=== PATIENT | male | born 1945 | race Caucasian/White ===

== ENCOUNTER 2016-09-10 19:31 | Inpatient (IN) | payer OTHER ==
[~2016-09-10] VITALS: Ht 175.3 cm; Wt 78.8 kg
[2016-09-10] MEDS ORDERED: morphine 4 MG/ML VIAL IV STA (19:37)
[2016-09-10] MEDS ORDERED: SOD CHLORIDE 0.9% 1,000 ML IV STA (19:37)
[2016-09-10 20:07] LABS: BASOPHILS % 0.3 % (0.0-2.0); EOSINOPHILS % 0.4 % (0.0-7.0); HEMATOCRIT 27.4 % (42.0-52.0); HEMOGLOBIN 9.7 g/dl (14.0-18.0); LYMPHOCYTES # 1.2 10^3/ul (0.8-2.9); LYMPHOCYTES % 12.2 % (15.0-51.0); MEAN CORPUSCULAR HGB CONC 35.4 g/dl (32.0-37.0); MEAN CORPUSCULAR VOLUME 118.6 fl (82.0-101.0); MEAN PLATELET VOLUME 10.5 fl (7.4-10.4); MONOCYTES % 9.7 % (0.0-11.0); NEUTROPHIL # 7.8 10^3/ul (1.6-7.5); NEUTROPHILS % 76.6 % (39.0-77.0); NUCLEATED RED BLOOD CELLS # 0.1 10^3/ul (0.0-0.0); NUCLEATED RED BLOOD CELLS% 0.6 /100WBC (0.0-0.0); PLATELET COUNT 100 10^3/UL (140-415); POSITIVE DIFF @See below; RED BLOOD COUNT 2.31 10^6/ul (4.70-6.10); RED CELL DISTRIBUTION WIDTH 15.1 % (11.5-14.5); WHITE BLOOD COUNT 10.1 10^3/ul (4.8-10.8)
[2016-09-10 20:23] LABS: PROTIME 31.6 Sec (12.2-14.2); PT RATIO 2.5
[2016-09-10 20:24] LABS: PARTIAL THROMBOPLASTIN TIME 45.2 Sec (25.0-35.0)
[2016-09-10 20:27] LABS: ALBUMIN/GLOBULIN RATIO 0.47; BILIRUBIN,DIRECT 3.8 mg/dl (0.00-0.20); BILIRUBIN,INDIRECT 2.8 mg/dl (0-1.1); BILIRUBIN,TOTAL 6.6 mg/dl (0.2-1.3); CALCIUM 7.3 mg/dl (8.4-10.2); CREATININE 0.95 mg/dl (0.61-1.24); POTASSIUM 3.3 mmol/L (3.5-5.1); TOTAL PROTEIN 6.2 g/dl (6.1-8.1)
[2016-09-10 20:38] LABS: TROPONIN-I 0.014 ng/ml (0.00-0.12)
--- NOTE | 2016-09-10 22:16 | ERA ---
ER Documentation Chief Complaint Date/Time DATE: 09/10/16 TIME: 22:09 Chief Complaint n/v, total body pain, h/o cirrhosis/acittes, jaundice, orthostatic on scene HPI 71-year-old male presents for whole-body pain as well as tense pressure-like pain of his abdomen. According to paramedics the patient felt very lightheaded when he stood up on arrival. He has had intermittently low saturation with the paramedics. Admits to some shortness of breath. He denies any chest pain specifically. Denies any vomiting. ROS All systems reviewed and are negative except as per history of present illness. Allergies Allergies: Coded Allergies: Penicillins (Verified Allergy, Unknown, 09/10/16) aspirin (Verified Allergy, Unknown, 09/10/16) PMhx/Soc History of Surgery: No Anesthesia Reaction: No Hx Neurological Disorder: No Hx Cardiac Disorders: Yes (HTN) Hx Psychiatric Problems: No Hx Miscellaneous Medical Probl: Yes (LIVER CIRRHOSIS) Hx Alcohol Use: Yes (CHARDONNAY) Hx Substance Use: No Hx Tobacco Use: No Smoking Status: Never smoker Physical Exam Vitals Vital Signs Date Time Temp Pulse Resp B/P Pulse Ox O2 Delivery O2 Flow Rate FiO2 09/10/16 21:31 97.6 94 22 101/75 Non Rebreather 09/10/16 20:52 91 23 119/97 100 Non Rebreather 09/10/16 20:20 98.0 94 23 111/63 100 Non Rebreather 09/10/16 20:05 98 23 96/60 83 Non Rebreather 09/10/16 19:55 Non Rebreather 09/10/16 19:55 98.0 100 23 102/59 Non Rebreather 09/10/16 19:38 97.2 108 22 102/59 83 Physical Exam Const: [] Moderate distress, appears short of breath and uncomfortable Head: Atraumatic Eyes: Normal Conjunctiva, EOMI, TONJA ENT: Normal External Ears, Nose and Mouth. Neck: Full range of motion..~ No meningismus. Resp: Markedly decreased bibasilar breath sounds Cardio: Regular rate and rhythm, no murmurs Abd: Soft, tensely distended, very mild diffuse tenderness to palpation,. No guarding or rebound. Skin: No petechiae or rashes, some jaundice Back: No midline or flank tenderness Ext: No cyanosis, mild bilateral pedal edema Neur: Awake and alert and oriented 3, no focal deficit Psych: Normal Mood and Affect Result Diagram: 09/10/16194409/10/161944 Results 24 hrs Laboratory Tests Test 09/10/16 19:45 White Blood Count 10.110^3/ul Red Blood Count 2.3110^6/ul Hemoglobin 9.7g/dl Hematocrit 27.4% Mean Corpuscular Volume 118.6fl Mean Corpuscular Hemoglobin 42.0pg Mean Corpuscular Hemoglobin Concent 35.4g/dl Red Cell Distribution Width 15.1% Platelet Count 94700^3/UL Mean Platelet Volume 10.5fl Neutrophils % 76.6% Lymphocytes % 12.2% Monocytes % 9.7% Eosinophils % 0.4% Basophils % 0.3% Nucleated Red Blood Cells % 0.6/100WBC Neutrophils # 7.810^3/ul Lymphocytes # 1.210^3/ul Monocytes # 1.010^3/ul Eosinophils # 0.010^3/ul Basophils # 0.010^3/ul Nucleated Red Blood Cells # 0.110^3/ul Prothrombin Time 31.6Sec Prothrombin Time Ratio 2.5 INR International Normalized Ratio 3.00 Activated Partial Thromboplast Time 45.2Sec Sodium Level 130mmol/L Potassium Level 3.3mmol/L Chloride Level 89mmol/L Carbon Dioxide Level 26mmol/L Anion Gap 18 Blood Urea Nitrogen 25mg/dl Creatinine 0.95mg/dl Glucose Level 137mg/dl Calcium Level 7.3mg/dl Total Bilirubin 6.6mg/dl Direct Bilirubin 3.80mg/dl Indirect Bilirubin 2.8mg/dl Aspartate Amino Transf (AST/SGOT) 136IU/L Alanine Aminotransferase (ALT/SGPT) 111IU/L Alkaline Phosphatase 71IU/L Troponin I 0.014ng/ml B-Type Natriuretic Peptide 1010PG/ML Total Protein 6.2g/dl Albumin 2.0g/dl Globulin 4.20g/dl Albumin/Globulin Ratio 0.47 Lipase 90U/L Current Medications Medications (Trade) Dose Ordered Sig/Demarco Route PRN Reason Start Time Stop Time Status Last Admin Dose Admin Sodium Chloride (NS) 1,000 ml @ 1,000 mls/hr Q1H STAT IV 09/10/16 19:37 09/10/16 20:36 DC 09/10/16 20:00 Morphine Sulfate (morphine) 4 mg ONCE STAT IV 09/10/16 19:37 09/10/16 19:40 DC 09/10/16 20:01 Procedures/MDM Respiratory distress and desaturation. Anticipate that patient shortness of breath is secondary to ascitic fluid in his abdomen pushing on his diaphragms and not allowing for full inspiration. No signs of acute infection. Patient did need a nonrebreather mask saturating well. Given a liter of fluid as he was tachycardic. He does have laboratories including mild pancytopenia and hyponatremia consistent with liver disease. Going to admit the patient after stabilization however is a [facility] patient. I did speak with the [facility] physician who does accept transfer. A CAT scan of the abdomen and pelvis is still pending. I see no signs of pulmonary edema the chest X ray. The incoming ER physician is aware and is going to follow-up a CAT scan. [facility] doctors also get a call back for the results. EKG interpretation: Sinus tachycardia rate of 103, low voltage, indeterminate axis, no ST or T-wave changes concerning for acute ischemia. SC intervals 204. monitoring specialist interpretation: Mild sinus tachycardia with no other arrhythmia Chest x-ray interpretation: I see no acute process, I see no pleural effusions, no pulmonary edema, no infiltrates, no fractures CT abdomen pelvis interpretation: I do see moderate ascites as well as cirrhotic liver, I do not see any colonic obstruction or free air. No fractures. Radiology read pending. Total CARE time 36 minutes: This includes treatment of unstable vital signs, hypoxia, tachypnea and tachycardia, careful fluid administration, consideration of noninvasive positive pressure ventilation, consideration of ET intubation, multiple visits patient's bedside to reassess cardiorespiratory status, discussion with [facility] doctor, discussion with oncoming physician, discussion with patient. This does not include any billable procedures Departure Diagnosis: Primary Impression: Hypoxia Additional Impressions: Respiratory distress Liver failure Ascites of liver Hyponatremia Condition: Serious ANGEL WRAY DO Sep 10, 2016 22:16
--- NOTE | 2016-09-10 22:22 | RADRPT ---
PROCEDURE: XR Chest. CLINICAL INDICATION: Chest pain. TECHNIQUE: Portable AP view of the chest was obtained. COMPARISON: None. FINDINGS: The cardiomediastinal silhouette is mildly enlarged. Left greater than right lower lobe and lingula r infiltrates are of concern. The costophrenic angles are blunted unable to exclude small pleural e ffusions. There is no evidence of pneumothorax. Old healed right sixth and seventh rib fractures a re present. There is no evidence of acute osseous abnormality. RPTAT:HJJR IMPRESSION: Cardiac silhouette enlargement, likely small bilateral pleural effusions and some basilar infiltrate /edema unable to exclude congestive heart failure in the proper clinical setting. Physician Jin Date Time Electronically viewed and signed by Ricky Delgado Physician on 09/10/2016 22:21 /
--- NOTE | 2016-09-10 22:28 | RADRPT ---
PROCEDURE: CT abdomen and pelvis without contrast. CLINICAL INDICATION: Jaundice, vomiting, abdominal pain TECHNIQUE: CT scan of the abdomen and pelvis without contrast was performed. Sagittal and coronal reformatted images were obtained from the axial source images. CTDI = 21.65 mGy; DLP = 1217.71 mGy- cm COMPARISON: None available. FINDINGS: Visualized lower thorax: Ground-glass opacities of the right middle lobe, lingula and right greater than left lower lobe are present. There is compressive atelectasis of the posterior lower lobe. T he right hemidiaphragm is elevated. The visualized heart is mildly enlarged with extensive coronary artery calcification. Small to moderate bilateral dependent pleural effusions are present. Liver, gallbladder, pancreas and spleen: Diffuse low attenuation of the liver is compatible with he patic steatosis with normal liver size. There is a slightly nodular contour to the liver unable to exclude cirrhosis. There is no evidence for a liver mass or ductal dilatation. Some hyperdense mat erial in the gallbladder lumen likely sludge without changes to suggest cholecystitis. No common bi le duct abnormality is demonstrated. The pancreas is unremarkable. The spleen is normal in size. Adrenal glands and genitourinary system: The adrenal glands are normal bilaterally. The kidneys are normal and size, contour and attenuation with no evidence for masses, calculi or hydronephrosis. T he ureters are unremarkable. Urinary bladder wall thickening is possibly related to a partially cont racted appearance. The prostate gland is normal in size. The scrotum is not included in the field of view. Gastrointestinal system: Small to moderate sliding hiatal hernia is present, the remainder of the s tomach is decompressed and unremarkable. The small bowel is normal in caliber with no ileus, obstru ction or wall thickening. The appendix and surrounding fat are within the limits of normal. The co carmella shows no evidence for wall thickening or acute abnormality. There is no evidence for colitis or diverticulitis. Peritoneum, retroperitoneum, lymph nodes and vessels: The abdominal aorta is normal in caliber. The re is moderate to severe aortic and iliac system atherosclerotic calcification. The inferior vena c jennifer is unremarkable. There is no evidence for adenopathy or mass. Moderate amount of pelvic and ab dominal ascites is present. There is some nonspecific edematous change within the small bowel mesen nato. There is no evidence of pneumoperitoneum. Varices are present in the left upper quadrant. Osseous structures and musculoskeletal findings: Left hip hemiarthroplasty changes are present. De mineralization cannot exclude osteoporosis. Mild chronic-appearing superior L2, L3 and L4 compressi on deformities are seen. Diffuse subcutaneous edema is consistent with anasarca. RPTAT:HJJR IMPRESSION: 1. Cardiomegaly with extensive coronary artery calcification, ground-glass infiltrate/edema in the v isualized lung parenchyma and bilateral pleural effusions as well as anasarca are concerning for car diac decompensation, congestive heart failure. 2. Hepatic steatosis with slight nodular contour to the liver unable to exclude cirrhosis. 3. Likely gallbladder sludge without cholecystitis. 4. Contracted but otherwise unremarkable urinary bladder. 5. Moderate ascites. 6. Chronic compression fracture deformities at L2, L3 and L4 with left hip hemiarthroplasty changes . 7. Atherosclerotic calcification of the aorta and iliac systems. 8. Hiatal hernia. Physician Jin Date Time Electronically viewed and signed by Physician Jin on 09/10/2016 22:28 JR/
[2016-09-11] VITALS (32 sets, daily range): BP systolic 86–120; BP diastolic 39–71; PULSE 95–112; RESP 17–27; TEMP 97.5; Ht 175.3 cm; Wt 78.8 kg
[2016-09-11] MEDS ORDERED: SOD CHLORIDE 0.9% 250 ML IV ONE (01:00)
[2016-09-11] MEDS ORDERED: PHYTONADIONE 10 MG/ML INJ SC ONE (04:00)
[2016-09-11] MEDS ORDERED: NITROGLYCERIN (SL) 0.4 MG TAB SL PRN (04:00)
[2016-09-11] MEDS ORDERED: morphine 2 MG INJ IV PRN (04:00)
[2016-09-11] MEDS ORDERED: LORAZEPAM 2 MG INJ IV PRN (04:00)
[2016-09-11] MEDS ORDERED: ONDANSETRON 4 MG INJ IV PRN (04:00)
[2016-09-11] MEDS ORDERED: ACETAMINOPHEN 650MG/20.3ML CUP PO PRN (04:00)
[2016-09-11 04:52] LABS: ABNORMAL IP MESSAGE 1; BASOPHILS % 0.2 % (0.0-2.0); EOSINOPHILS % 0.4 % (0.0-7.0); HEMATOCRIT 25.9 % (42.0-52.0); HEMOGLOBIN 9.2 g/dl (14.0-18.0); LYMPHOCYTES % 9.1 % (15.0-51.0); MEAN CORPUSCULAR HEMOGLOBIN 40.9 pg (29.0-33.0); MEAN CORPUSCULAR HGB CONC 35.5 g/dl (32.0-37.0); MEAN CORPUSCULAR VOLUME 115.1 fl (82.0-101.0); MEAN PLATELET VOLUME 10.4 fl (7.4-10.4); MONOCYTE # 0.9 10^3/ul (0.3-0.9); MONOCYTES % 7.7 % (0.0-11.0); NEUTROPHIL # 9.3 10^3/ul (1.6-7.5); NEUTROPHILS % 81.9 % (39.0-77.0); NUCLEATED RED BLOOD CELLS% 0.3 /100WBC (0.0-0.0); PLATELET COUNT 94 10^3/UL (140-415); POSITIVE DIFF @See below; RED BLOOD COUNT 2.25 10^6/ul (4.70-6.10); WHITE BLOOD COUNT 11.4 10^3/ul (4.8-10.8)
[2016-09-11] MEDS: ALBUTEROL/IPRATROPIUM (NEB) 3 ML AMP NEB SCH ×5 (05:00→21:20)
[2016-09-11 05:15] LABS: ALBUMIN 1.8 g/dl (3.3-4.9); ALBUMIN/GLOBULIN RATIO 0.45; BILIRUBIN,DIRECT 3.1 mg/dl (0.00-0.20); BILIRUBIN,INDIRECT 2.3 mg/dl (0-1.1); BILIRUBIN,TOTAL 5.4 mg/dl (0.2-1.3); CALCIUM 7.2 mg/dl (8.4-10.2); CREATININE 0.89 mg/dl (0.61-1.24); MAGNESIUM 1.3 mg/dl (1.7-2.5); POTASSIUM 3.5 mmol/L (3.5-5.1); TOTAL PROTEIN 5.8 g/dl (6.1-8.1)
[2016-09-11 05:25] LABS: TROPONIN-I 0.016 ng/ml (0.00-0.12)
[2016-09-11 05:29] LABS: CK-MB 3.81 ng/ml (0.0-2.4)
[2016-09-11] MEDS: FUROSEMIDE 40 MG INJ IV SCH (05:41)
[2016-09-11 05:43] LABS: THYROID STIMULATING HORMONE 12.2 MIU/L (0.465-4.680)
[2016-09-11 07:12] LABS: CHOLESTEROL < 50 mg/dl (100-200); HDL CHOLESTEROL < 5 mg/dl (31-75)
[2016-09-11 07:13] LABS: TRIGLYCERIDES 96 mg/dl (0-149)
[2016-09-11 07:14] LABS: AADO2 Arterial 618.3 mmHg (7.0-24.0); Allen Test ACCEPTAB; Arterial Base Excess -2.4 mmol/L (-3.0-3); Arterial COHb 0.7 % (0.0-3.0); Arterial Fraction of Oxyhgb 90.2 % (93.0-99.0); Arterial HCO3 20.7 mmol/L (22.0-26.0); Arterial MetHb 0.4 % (0.0-1.5); Arterial Total Hemglobin 11.4 g/dl (12.0-18.0); MODE MASK - NRB
--- NOTE | 2016-09-11 07:44 | RADRPT ---
PROCEDURE: CHEST - 1 VIEW CLINICAL INDICATION: 71-year-old male with hypoxia and shortness of breath. TECHNIQUE: A single frontal AP semi-erect view of the chest was performed. The images were review ed on a PACS workstation. COMPARISON: Chest x-ray September 10, 2016 FINDINGS: There is a shallow inspiration accentuating the heart size. Accounting for this, the cardiomediasti nal silhouette is mildly enlarged but without significant interval change. The thoracic aortic arch is calcified. There is mild bibasilar subsegmental atelectasis. There is small left pleural effus ion. There is ground-glass appearance suggestive of mild pulmonary vascular congestion. There is no evidence for pneumothorax. The osseous structures are intact. IMPRESSION: 1. Mild cardiomegaly. 2. Calcified thoracic aortic arch. 3. Mild pulmonary vascular congestion 4. Shallow inspiration. 5. Mild bibasilar subsegmental atelectasis. 6. Small left pleural effusion. .Marcos Wheatley MD, MD Date Time Electronically viewed and signed by .Marcos Wheatley MD, on 09/11/2016 07:43 .M/
[2016-09-11 07:55] LABS: ADD UMIC YES; UR BILIRUBIN (Dip) 3+ (NEGATIVE); UR BLOOD (Dip) 1+ (NEGATIVE); UR COLOR AMBER (YELLOW); UR KETONES (Dip) 1+ (NEGATIVE); UR LEUKOCYTE ESTERASE (Dip) NEGATIVE (NEGATIVE); UR NITRITE (Dip) POSITIVE (NEGATIVE); UR TOTAL PROTEIN (Dip) 1+ (NEGATIVE); UR UROBILINOGEN (Dip) >8.0 E.U./dL (0.1-1.0)
[2016-09-11] MEDS ORDERED: ALBUMIN HUMAN 25% 50 ML IV ONE (08:00)
[2016-09-11 08:08] LABS: ICTOTEST POSITIVE (NEGATIVE); URINE RBCS 0-2 /HPF (0)
[2016-09-11 08:09] LABS: TROPONIN-I 0.017 ng/ml (0.00-0.12)
[2016-09-11 08:09] LABS: UR BACTERIA FEW /HPF (NONE SEEN); UR CLARITY HAZY (CLEAR); UR MUCUS FEW /HPF (NONE SEEN)
[2016-09-11 08:20] LABS: CK-MB 3.65 ng/ml (0.0-2.4)
[2016-09-11] MEDS ORDERED: VANCOMYCIN 1 GM (PMX) 250 ML IVPB ONE (08:30)
[2016-09-11] MEDS: LEVOFLOXACIN 500MG/D5W (PMX) 100 ML IVPB SCH (08:50)
[2016-09-11] MEDS ORDERED: HEPARIN 5,000 UNIT/0.5 ML VIAL SC SCH (09:00)
--- NOTE | 2016-09-11 09:57 | HP ---
Date/Time of Note Date/Time of Note DATE: 09/11/16 TIME: 09:42 Assessment/Plan Assessment/Plan Assessment/Plan IMPRESSION 1. Acute respiratory failure, secondary to volume overload state 2. Decompensated liver cirrhosis with ascites 3. CHF 4. Elevated transaminases and hyperbilirubinemia: Secondary to end-stage liver disease 5. Coagulopathy, manifestation of liver disease 6. Macrocytic anemia: Caused by liver disease 7. Electrolyte abnormalities PLAN -Continue positive pressure ventilation. Breathing treatments. Will diurese with IV Lasix. -I have ordered ultrasound-guided paracentesis. -We will obtain a 2D echo -Pulmonary, cardiology and GI consult will be placed -Anemia is a manifestation of his liver disease but given patient is at increased risk for GI bleed, will order FOBT and also will check for iron deficiency. -Correct electrolytes as needed HPI/ROS Admit Date/Time Admit Date/Time Hx of Present Illness This is a 71-year-old male with a history of hypertension, liver cirrhosis and CHF who presented to the emergency department complaining of abdominal pain/ distention, nausea vomiting and shortness of breath. Patient's currently on BiPAP and as such information is gathered from a chart review and from the ER physician. When he presented to the ER his oxygen saturation was 83% and he was initially put on nonrebreather mask and then switched to BiPAP. His abdomen is distended and patient is jaundiced he had a sodium of 130 total bilirubin is elevated at 6.6, AST and ALT are in the 100s. CT abdomen pelvis shows cardiomegaly with extensive coronary artery calcifications, infiltrate in the lung parenchymal, pulmonary edema, anasarca concerning for cardiac decompensation, CHF. No reported chest pain. PMH/Family/Social Social History Smoking Status: Never smoker Exam/Review of Systems Vital Signs Vitals Vital Signs Date Time Temp Pulse Resp B/P Pulse Ox O2 Delivery O2 Flow Rate FiO2 09/11/16 09:32 109 28 98/59 95 BIPAP 09/11/16 09:25 50 09/11/16 07:08 12 09/11/16 06:44 97.5 Intake and Output 09/10/16 09/10/16 09/11/16 15:00 23:00 07:00 Intake Total 1250 ml Balance 1250 ml Exam Constitutional: other (On BiPAP. No acute distress) Respiratory: diminished breath sounds Cardiovascular: other (Tachycardic with regular rhythm) Gastrointestinal: distended, tender Labs Result Diagram: 09/11/1644409/11/16444 Medications Medications Current Medications Ondansetron HCl (Zofran Inj) 4 mg Q6H PRN IV NAUSEA AND/OR VOMITING; Start at 04:00 Nitroglycerin (Nitroglycerin (Sl Tab) 0.4 Mg) 1 tab Q5M PRN SL CHEST PAIN; Start 09/11/16 at 04:00 Acetaminophen (Tylenol Liquid) 650 mg Q6H PRN PO PAIN LEVEL 1-3 OR FEVER; Start 09/11/16 at 04:00 Morphine Sulfate (morphine) 2 mg Q4H PRN IV PAIN LEVEL 7-10; Start 09/11/16 at 04:00 Lorazepam (Ativan) 0.5 mg Q2H PRN IV ANXIETY; Start 09/11/16 at 04:00 Famotidine (Pepcid Iv) 20 mg Q12 IV ; Start 09/11/16 at 09:00 Heparin Sodium (Porcine) (Heparin (5000 Units/0.5 ml)) 5,000 unit Q12 SC ; Start 09/11/16 at 09:00 Furosemide 40 mg 40 mg DAILY@06 IV Last administered on 09/11/16 05:41; Admin Dose 40 MG; Start 09/11/16 at 06:00 Levofloxacin/ Dextrose 100 ml @ 100 mls/hr DAILY IVPB Last administered on 08:50; Admin Dose 100 MLS/HR; Start 09/11/16 at 09:00 Vancomycin HCl (Vancocin) 250 ml @ 125 mls/hr ONCE ONCE IVPB ; Start 09/11/16 at 08:30; Stop 09/11/16 at 10:29 JAIRO RICH MD Sep 11, 2016 09:54
--- NOTE | 2016-09-11 11:41 | CONS ---
Date/Time of Note Date/Time of Note DATE: 09/11/16 TIME: 11:36 Assessment/Plan Assessment/Plan Additional Assessment/Plan Chest x-ray was reviewed from today which is showing minimal left lower lobe atelectasis. Next Assessment recommendations; 1. Patient admitted with shortness of breath likely from large ascites compromising respiratory status. 2. History of advanced cirrhosis of liver. 3. Anemia and thrombocytopenia. Continue current treatment. Patient scheduled for ultrasound of the abdomen. If there is any significant ascites fluid he would benefit from therapeutic paracentesis. Consultation Date/Type/Reason Admit Date/Time Date of Consultation: Sep 11, 2016 Type of Consultation: Pulmonary/critical care Reason for Consultation Pulmonary consultation requested for evaluation of shortness of breath. History of presenting any; patient is a 70-year-old male who was brought into the emergency room with complaints of shortness of breath. Upon evaluation patient was discovered to have severe liver disease with possibly significant ascites compromising his breathing. By the time I saw the patient I saw the patient is awake on supplemental oxygen and was able to answer questions briefly. She has been obtained from medical records. Past medical history; 1. Patient with history of cirrhosis. 2. Apparently chronic thrombocytopenia. 3. No prior history of any ascites or paracentesis. This was confirmed with the patient's friend who has a DPOA. Medications; reviewed. Allergies; penicillin and aspirin. Family history; patient is single. He does not have any children. Occupational history; not available. Review of systems; a very limited review of systems could be obtained. Patient does complain of mild shortness of breath. But denies any abdominal pain, vomiting. General exam; elderly male, currently in no distress. Awake. Social History Smoking Status: Never smoker Exam/Review of Systems Vital Signs Vitals Vital Signs Date Time Temp Pulse Resp B/P Pulse Ox O2 Delivery O2 Flow Rate FiO2 09/11/16 10:10 107 95 50 09/11/16 09:32 28 98/59 BIPAP 09/11/16 07:08 12 09/11/16 06:44 97.5 Intake and Output 09/10/16 09/10/16 09/11/16 15:00 23:00 07:00 Intake Total 1250 ml Balance 1250 ml Exam HEENT exam; supple neck, no JVD. No lymphadenopathy. Midline trachea. No thyromegaly. Patient multiple carious teeth. Has bilateral intraocular lens implants. Patient is anicteric. Chest exam; diminished but clear breath sound bilaterally. No added sound. S1- S2 audible, no murmurs. Regular rhythm. Abdomen exam; protuberant. Bowel sounds are sluggish. Umbilicus is flat. There is a positive fluid thrill. There is no scrotal edema. Extremity exam; no peripheral edema. Patient does have ecchymosis involving left lower extremity. 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 And follows simple commands. Results Result Diagram: 09/11/16 0445 09/11/16 0445 Results 24 hrs Laboratory Tests Test 09/10/16 19:45 09/11/16 04:45 09/11/16 06:37 09/11/16 06:39 White Blood Count 10.1 11.4 H Red Blood Count 2.31 L 2.25 L Hemoglobin 9.7 L 9.2 L Hematocrit 27.4 L 25.9 L Mean Corpuscular Volume 118.6 H 115.1 H Mean Corpuscular Hemoglobin 42.0 H 40.9 H Mean Corpuscular Hemoglobin Concent 35.4 35.5 Red Cell Distribution Width 15.1 H 15.0 H Platelet Count 100 L 94 L Mean Platelet Volume 10.5 H 10.4 Neutrophils % 76.6 81.9 H Lymphocytes % 12.2 L 9.1 L Monocytes % 9.7 7.7 Eosinophils % 0.4 0.4 Basophils % 0.3 0.2 Nucleated Red Blood Cells % 0.6 H 0.3 H Neutrophils # 7.8 H 9.3 H Lymphocytes # 1.2 1.0 Monocytes # 1.0 H 0.9 Eosinophils # 0.0 0.0 Basophils # 0.0 0.0 Nucleated Red Blood Cells # 0.1 H 0.0 Prothrombin Time 31.6 H Prothrombin Time Ratio 2.5 INR International Normalized Ratio 3.00 Activated Partial Thromboplast Time 45.2 H Sodium Level 130 L 131 L Potassium Level 3.3 L 3.5 Chloride Level 89 L 92 L Carbon Dioxide Level 26 26 Anion Gap 18 H 17 H Blood Urea Nitrogen 25 H 26 H Creatinine 0.95 0.89 Glucose Level 137 122 Calcium Level 7.3 L 7.2 L Total Bilirubin 6.6 H 5.4 H Direct Bilirubin 3.80 H 3.10 H Indirect Bilirubin 2.8 H 2.3 H Aspartate Amino Transf (AST/SGOT) 136 H 127 H Alanine Aminotransferase (ALT/SGPT) 111 H 109 H Alkaline Phosphatase 71 62 Troponin I 0.014 0.016 0.017 B-Type Natriuretic Peptide 1010 H Total Protein 6.2 5.8 L Albumin 2.0 L 1.8 L Globulin 4.20 H 4.00 H Albumin/Globulin Ratio 0.47 0.45 Lipase 90 Hemoglobin A1c Magnesium Level 1.3 L Creatine Kinase 63 58 Creatine Kinase Index 6.0 6.3 Creatinine Kinase MB (Mass) 3.81 H 3.65 H Triglycerides Level 96 Cholesterol Level < 50 L LDL Cholesterol, Calculated HDL Cholesterol < 5 L Cholesterol/HDL Ratio Thyroid Stimulating Hormone (TSH) 12.200 H Ammonia 29 Blood Gas Specimen Source Blood arterial Arterial Blood Date Drawn 09/11/2016 7:00:50 AM Arterial Blood pH (Temp corrected) 7.449 Arterial Blood pCO2 (Temp correct) 30.6 L Arterial Blood pO2 (Temp corrected) 64.1 L Arterial Blood HCO3 20.7 L Arterial Blood Base Excess -2.4 Arterial Blood Oxygen Saturation 91.2 L [place] Test ACCEPTAB Arterial Blood Gas Puncture Site Left Radial Arterial Blood Carboxyhemoglobin 0.7 Arterial Blood Methemoglobin 0.4 Blood Gas A-a O2 Differential 618.3 H Oxyhemoglobin Percent 90.2 L Total Hemoglobin 11.4 L Blood Gas Temperature 37.0 Blood Gas Modality MASK - NRB FiO2 100.0 Blood Gas Notified Whom AT Blood Gas Notified Time 09/11/2016 7:14:28 AM Test 09/11/16 06:40 09/11/16 07:30 09/11/16 09:32 Lactic Acid Level 4.3 *H 6.0 *H Urine Color YAJAIRA Urine Clarity HAZY Urine pH 6.5 Urine Specific [place] 1.020 Urine Ketones 1+ Urine Nitrite POSITIVE H Urine Bilirubin 3+ H Urine Ictotest POSITIVE Urine Urobilinogen >8.0 E.U./dL H Urine Leukocyte Esterase NEGATIVE Urine Microscopic RBC 0-2 Urine Bacteria FEW Urine Mucus FEW Urine Hemoglobin 1+ H Urine Glucose 0.1% H Urine Total Protein 1+ H Medications Medications Current Medications Ondansetron HCl (Zofran Inj) 4 mg Q6H PRN IV NAUSEA AND/OR VOMITING; Start at 04:00 Nitroglycerin (Nitroglycerin (Sl Tab) 0.4 Mg) 1 tab Q5M PRN SL CHEST PAIN; Start 09/11/16 at 04:00 Acetaminophen (Tylenol Liquid) 650 mg Q6H PRN PO PAIN LEVEL 1-3 OR FEVER; Start 09/11/16 at 04:00 Morphine Sulfate (morphine) 2 mg Q4H PRN IV PAIN LEVEL 7-10; Start 09/11/16 at 04:00 Lorazepam (Ativan) 0.5 mg Q2H PRN IV ANXIETY; Start 09/11/16 at 04:00 Famotidine (Pepcid Iv) 20 mg Q12 IV ; Start 09/11/16 at 09:00 Heparin Sodium (Porcine) (Heparin (5000 Units/0.5 ml)) 5,000 unit Q12 SC ; Start 09/11/16 at 09:00 Furosemide 40 mg 40 mg DAILY@06 IV Last administered on 09/11/16 05:41; Admin Dose 40 MG; Start 09/11/16 at 06:00 Levofloxacin/ Dextrose 100 ml @ 100 mls/hr DAILY IVPB Last administered on 08:50; Admin Dose 100 MLS/HR; Start 09/11/16 at 09:00 Magnesium Sulfate/ Sodium Chloride (Magnesium Sulfate/NS) 106 ml @ 35.333 mls/ hr ONCE ONCE IVPB ; Start 09/11/16 at 12:00; Stop 09/11/16 at 14:59 SARA VIDAL Sep 11, 2016 11:41
[2016-09-11] MEDS ORDERED: MAGNESIUM SULFATE 3 GM in SOD CHLORIDE 0.9% 100 ML IVPB ONE (12:00)
[2016-09-11] MEDS: FAMOTIDINE 20 MG INJ IV SCH ×2 (12:03→21:53)
[2016-09-11 12:43] LABS: INR 2.77; PROTIME 29.6 Sec (12.2-14.2); PT RATIO 2.3
--- NOTE | 2016-09-11 13:18 | CONS ---
Date/Time of Note Date/Time of Note DATE: 09/11/16 TIME: 13:02 Assessment/Plan Assessment/Plan Additional Assessment/Plan Assessment * Acute respiratory failure managed by pulmonary * Abdominal distension Ascites Liver cirrhosis * Elevated transaminases * Congestive heart failure Plan * continue present management * trend transaminase levels * correct INR * paracentesis by interventional radiologist * further orders will depend on clinical course Consultation Date/Type/Reason Admit Date/Time Date of Consultation: Sep 11, 2016 Type of Consultation: Gastroenterology Reason for Consultation elevated transaminase Referring Provider: RORY DIAZ Hx of Present Illness 71 year old with past medical history liver cirrhosis,hypertension,and congestive heart failure was brought to emergency room complaining of shortness of breath ,abdominal distension..Patient is lethargic on Bipap and history is obtained with medical records and nurse.CBC revealed WBC 10.1,hemoglobin 9.7, hematorit 27.4 platelet 100,PT 29.6 INR2.77,Na130 K 3.3,Totl bilirubin 6.6 AST 136,ALT [address] scan abdomen 1. Cardiomegaly with extensive coronary artery calcification, ground-glass infiltrate/edema in the visualized lung parenchyma and bilateral pleural effusions as well as anasarca are concerning for cardiac decompensation, congestive heart failure. 2. Hepatic steatosis with slight nodular contour to the liver unable to exclude cirrhosis. 3. Likely gallbladder sludge without cholecystitis. 4. Contracted but otherwise unremarkable urinary bladder. 5. Moderate ascites. 6. Chronic compression fracture deformities at L2, L3 and L4 with left hip hemiarthroplasty changes. 7. Atherosclerotic calcification of the aorta and iliac systems. 8. Hiatal hernia. Past Medical History Medical History: congestive heart failure, hypertension, other (cirrhosis) Family History Significant Family History: no pertinent family hx Social History Smoking Status: Never smoker Exam/Review of Systems Vital Signs Vitals Vital Signs Date Time Temp Pulse Resp B/P Pulse Ox O2 Delivery O2 Flow Rate FiO2 09/11/16 12:35 106 96 50 09/11/16 09:32 28 98/59 BIPAP 09/11/16 07:08 12 09/11/16 06:44 97.5 Intake and Output 09/10/16 09/10/16 09/11/16 15:00 23:00 07:00 Intake Total 1250 ml Balance 1250 ml Exam Constitutional: frail Head: normocephalic Eyes: nl conjunctiva ENMT: mucosa pink and moist, other (on bipap) Neck: non-tender, supple Respiratory: diminished breath sounds, intercostal retraction, other (bipap) Gastrointestinal: bowel sounds, distended, non-tender, soft Musculoskeletal: muscle weakness, swelling Extremities: edema Neurological: lethargic Lymph: nl lymph nodes Results Result Diagram: 09/11/16 0445 09/11/16 0445 Results 24 hrs Laboratory Tests Test 09/10/16 19:45 09/11/16 04:45 09/11/16 06:37 09/11/16 06:39 White Blood Count 10.1 11.4 H Red Blood Count 2.31 L 2.25 L Hemoglobin 9.7 L 9.2 L Hematocrit 27.4 L 25.9 L Mean Corpuscular Volume 118.6 H 115.1 H Mean Corpuscular Hemoglobin 42.0 H 40.9 H Mean Corpuscular Hemoglobin Concent 35.4 35.5 Red Cell Distribution Width 15.1 H 15.0 H Platelet Count 100 L 94 L Mean Platelet Volume 10.5 H 10.4 Neutrophils % 76.6 81.9 H Lymphocytes % 12.2 L 9.1 L Monocytes % 9.7 7.7 Eosinophils % 0.4 0.4 Basophils % 0.3 0.2 Nucleated Red Blood Cells % 0.6 H 0.3 H Neutrophils # 7.8 H 9.3 H Lymphocytes # 1.2 1.0 Monocytes # 1.0 H 0.9 Eosinophils # 0.0 0.0 Basophils # 0.0 0.0 Nucleated Red Blood Cells # 0.1 H 0.0 Prothrombin Time 31.6 H Prothrombin Time Ratio 2.5 INR International Normalized Ratio 3.00 Activated Partial Thromboplast Time 45.2 H Sodium Level 130 L 131 L Potassium Level 3.3 L 3.5 Chloride Level 89 L 92 L Carbon Dioxide Level 26 26 Anion Gap 18 H 17 H Blood Urea Nitrogen 25 H 26 H Creatinine 0.95 0.89 Glucose Level 137 122 Calcium Level 7.3 L 7.2 L Total Bilirubin 6.6 H 5.4 H Direct Bilirubin 3.80 H 3.10 H Indirect Bilirubin 2.8 H 2.3 H Aspartate Amino Transf (AST/SGOT) 136 H 127 H Alanine Aminotransferase (ALT/SGPT) 111 H 109 H Alkaline Phosphatase 71 62 Troponin I 0.014 0.016 0.017 B-Type Natriuretic Peptide 1010 H Total Protein 6.2 5.8 L Albumin 2.0 L 1.8 L Globulin 4.20 H 4.00 H Albumin/Globulin Ratio 0.47 0.45 Lipase 90 Hemoglobin A1c Magnesium Level 1.3 L Creatine Kinase 63 58 Creatine Kinase Index 6.0 6.3 Creatinine Kinase MB (Mass) 3.81 H 3.65 H Triglycerides Level 96 Cholesterol Level < 50 L LDL Cholesterol, Calculated HDL Cholesterol < 5 L Cholesterol/HDL Ratio Thyroid Stimulating Hormone (TSH) 12.200 H Ammonia 29 Blood Gas Specimen Source Blood arterial Arterial Blood Date Drawn 09/11/2016 7:00:50 AM Arterial Blood pH (Temp corrected) 7.449 Arterial Blood pCO2 (Temp correct) 30.6 L Arterial Blood pO2 (Temp corrected) 64.1 L Arterial Blood HCO3 20.7 L Arterial Blood Base Excess -2.4 Arterial Blood Oxygen Saturation 91.2 L [place] Test ACCEPTAB Arterial Blood Gas Puncture Site Left Radial Arterial Blood Carboxyhemoglobin 0.7 Arterial Blood Methemoglobin 0.4 Blood Gas A-a O2 Differential 618.3 H Oxyhemoglobin Percent 90.2 L Total Hemoglobin 11.4 L Blood Gas Temperature 37.0 Blood Gas Modality MASK - NRB FiO2 100.0 Blood Gas Notified Whom AT Blood Gas Notified Time 09/11/2016 7:14:28 AM Test 09/11/16 06:40 09/11/16 07:30 09/11/16 09:32 09/11/16 12:08 Lactic Acid Level 4.3 *H 6.0 *H 6.1 *H Urine Color YAJAIRA Urine Clarity HAZY Urine pH 6.5 Urine Specific [place] 1.020 Urine Ketones 1+ Urine Nitrite POSITIVE H Urine Bilirubin 3+ H Urine Ictotest POSITIVE Urine Urobilinogen >8.0 E.U./dL H Urine Leukocyte Esterase NEGATIVE Urine Microscopic RBC 0-2 Urine Bacteria FEW Urine Mucus FEW Urine Hemoglobin 1+ H Urine Glucose 0.1% H Urine Total Protein 1+ H Prothrombin Time 29.6 H Prothrombin Time Ratio 2.3 INR International Normalized Ratio 2.77 Medications Medications Current Medications Ondansetron HCl (Zofran Inj) 4 mg Q6H PRN IV NAUSEA AND/OR VOMITING; Start at 04:00 Nitroglycerin (Nitroglycerin (Sl Tab) 0.4 Mg) 1 tab Q5M PRN SL CHEST PAIN; Start 09/11/16 at 04:00 Acetaminophen (Tylenol Liquid) 650 mg Q6H PRN PO PAIN LEVEL 1-3 OR FEVER; Start 09/11/16 at 04:00 Morphine Sulfate (morphine) 2 mg Q4H PRN IV PAIN LEVEL 7-10; Start 09/11/16 at 04:00 Lorazepam (Ativan) 0.5 mg Q2H PRN IV ANXIETY; Start 09/11/16 at 04:00 Famotidine (Pepcid Iv) 20 mg Q12 IV Last administered on 09/11/16 12:03; Admin Dose 20 MG; Start 09/11/16 at 09:00 Heparin Sodium (Porcine) (Heparin (5000 Units/0.5 ml)) 5,000 unit Q12 SC ; Start 09/11/16 at 09:00 Furosemide 40 mg 40 mg DAILY@06 IV Last administered on 09/11/16 05:41; Admin Dose 40 MG; Start 09/11/16 at 06:00 Levofloxacin/ Dextrose 100 ml @ 100 mls/hr DAILY IVPB Last administered on 08:50; Admin Dose 100 MLS/HR; Start 09/11/16 at 09:00 Magnesium Sulfate/ Sodium Chloride (Magnesium Sulfate/NS) 106 ml @ 35.333 mls/ hr ONCE ONCE IVPB ; Start 09/11/16 at 12:00; Stop 09/11/16 at 14:59 JIM MCKEON MD Sep 11, 2016 13:12
[2016-09-12] VITALS (39 sets, daily range): BP systolic 81–116; BP diastolic 54–72; PULSE 51–135; RESP 21–37
[2016-09-12] MEDS: ALBUTEROL/IPRATROPIUM (NEB) 3 ML AMP NEB SCH ×5 (01:03→17:02)
[2016-09-12] MEDS: FUROSEMIDE 40 MG INJ IV SCH (05:11)
[2016-09-12 05:46] LABS: ABNORMAL IP MESSAGE 1; BASOPHILS % 0.2 % (0.0-2.0); EOSINOPHILS # 0.1 10^3/ul (0.0-0.5); EOSINOPHILS % 1.1 % (0.0-7.0); HEMATOCRIT 24.6 % (42.0-52.0); HEMOGLOBIN 8.4 g/dl (14.0-18.0); LYMPHOCYTES # 0.7 10^3/ul (0.8-2.9); LYMPHOCYTES % 11.7 % (15.0-51.0); MEAN CORPUSCULAR HEMOGLOBIN 40.8 pg (29.0-33.0); MEAN CORPUSCULAR HGB CONC 34.1 g/dl (32.0-37.0); MEAN CORPUSCULAR VOLUME 119.4 fl (82.0-101.0); MEAN PLATELET VOLUME 10.2 fl (7.4-10.4); MONOCYTE # 0.5 10^3/ul (0.3-0.9); NEUTROPHIL # 4.3 10^3/ul (1.6-7.5); NEUTROPHILS % 77.5 % (39.0-77.0); NUCLEATED RED BLOOD CELLS% 0.4 /100WBC (0.0-0.0); PLATELET COUNT 70 10^3/UL (140-415); POSITIVE DIFF @See below; RED BLOOD COUNT 2.06 10^6/ul (4.70-6.10); RED CELL DISTRIBUTION WIDTH 15.4 % (11.5-14.5); WHITE BLOOD COUNT 5.6 10^3/ul (4.8-10.8)
[2016-09-12 06:07] LABS: PROTIME 22.9 Sec (12.2-14.2); PT RATIO 1.8
[2016-09-12 06:24] LABS: CALCIUM 7.6 mg/dl (8.4-10.2); CREATININE 1.36 mg/dl (0.61-1.24); POTASSIUM 3.3 mmol/L (3.5-5.1)
[2016-09-12 06:26] LABS: MAGNESIUM 1.8 mg/dl (1.7-2.5); PHOSPHORUS 3.5 mg/dl (2.5-4.9)
[2016-09-12 06:45] LABS: ALBUMIN 1.9 g/dl (3.3-4.9); BILIRUBIN,DIRECT 2.8 mg/dl (0.00-0.20); BILIRUBIN,INDIRECT 2.5 mg/dl (0-1.1); BILIRUBIN,TOTAL 5.3 mg/dl (0.2-1.3); TOTAL PROTEIN 5.4 g/dl (6.1-8.1)
[2016-09-12] MEDS: FAMOTIDINE 20 MG INJ IV SCH (09:01)
[2016-09-12] MEDS: LEVOFLOXACIN 500MG/D5W (PMX) 100 ML IVPB SCH (09:02)
--- NOTE | 2016-09-12 09:41 | PN ---
Date/Time of Note Date/Time of Note DATE: 09/12/16 TIME: 09:41 Assessment/Plan Lines/Catheters IV Catheter Type (from Nrs): Saline Lock Urinary Cath still in place: Yes Subjective 24 Hr Interval Summary Free Text/Dictation Pt to get paracentesis today. Wondering when BiPap can be discontinued Exam/Review of Systems Vital Signs Vitals Vital Signs Date Time Temp Pulse Resp B/P Pulse Ox O2 Delivery O2 Flow Rate FiO2 09/12/16 07:36 104 98 100 09/12/16 06:00 24 108/62 09/12/16 04:00 98.2 09/11/16 19:00 BIPAP 09/11/16 07:08 12 Intake and Output 09/11/16 09/11/16 09/12/16 15:00 23:00 07:00 Intake Total 275 ml 186 ml 704 ml Output Total 110 ml 60 ml 140 ml Balance 165 ml 126 ml 564 ml Exam nad, pleasant no mrg lung clear +ascities no rashes Results Result Diagram: 09/12/1622 09/12/16 0522 Results 24 hrs Laboratory Tests Test 09/11/16 12:08 09/11/16 19:00 09/12/16 01:28 09/12/16 05:22 Prothrombin Time 29.6 H 22.9 #H Prothrombin Time Ratio 2.3 1.8 INR International Normalized Ratio 2.77 2.00 Lactic Acid Level 6.1 *H 4.1 *H 3.4 *H 3.1 *H Free Thyroxine 1.24 White Blood Count 5.6 # Red Blood Count 2.06 L Hemoglobin 8.4 L Hematocrit 24.6 L Mean Corpuscular Volume 119.4 H Mean Corpuscular Hemoglobin 40.8 H Mean Corpuscular Hemoglobin Concent 34.1 Red Cell Distribution Width 15.4 H Platelet Count 70 #L Mean Platelet Volume 10.2 Neutrophils % 77.5 H Lymphocytes % 11.7 L Monocytes % 9.0 Eosinophils % 1.1 Basophils % 0.2 Nucleated Red Blood Cells % 0.4 H Neutrophils # 4.3 Lymphocytes # 0.7 L Monocytes # 0.5 Eosinophils # 0.1 Basophils # 0.0 Nucleated Red Blood Cells # 0.0 Sodium Level 134 L Potassium Level 3.3 L Chloride Level 94 L Carbon Dioxide Level 28 Anion Gap 15 Blood Urea Nitrogen 29 H Creatinine 1.36 H Glucose Level 118 Calcium Level 7.6 L Phosphorus Level 3.5 Magnesium Level 1.8 Total Bilirubin 5.3 H Direct Bilirubin 2.80 H Indirect Bilirubin 2.5 H Aspartate Amino Transf (AST/SGOT) 111 H Alanine Aminotransferase (ALT/SGPT) 94 H Alkaline Phosphatase 60 Total Protein 5.4 L Albumin 1.9 L Medications Medications Current Medications Ondansetron HCl (Zofran Inj) 4 mg Q6H PRN IV NAUSEA AND/OR VOMITING; Start at 04:00 Nitroglycerin (Nitroglycerin (Sl Tab) 0.4 Mg) 1 tab Q5M PRN SL CHEST PAIN; Start 09/11/16 at 04:00 Acetaminophen (Tylenol Liquid) 650 mg Q6H PRN PO PAIN LEVEL 1-3 OR FEVER; Start 09/11/16 at 04:00 Morphine Sulfate (morphine) 2 mg Q4H PRN IV PAIN LEVEL 7-10 Last administered on 09/12/16 01:20; Admin Dose 2 MG; Start 09/11/16 at 04:00 Lorazepam (Ativan) 0.5 mg Q2H PRN IV ANXIETY; Start 09/11/16 at 04:00 Famotidine (Pepcid Iv) 20 mg Q12 IV Last administered on 09/12/16 09:01; Admin Dose 20 MG; Start 09/11/16 at 09:00 Furosemide 40 mg 40 mg DAILY@06 IV Last administered on 09/12/16 05:11; Admin Dose 40 MG; Start 09/11/16 at 06:00 Levofloxacin/ Dextrose (Levaquin 500mg/ D5W 100 ml (Pmx)) 100 ml @ 100 mls/hr DAILY IVPB Last administered on 09/12/16 09:02; Admin Dose 100 MLS/HR; Start 09/11/16 at 09:00 PARESH CANAS MD Sep 12, 2016 09:41
[2016-09-12] MEDS ORDERED: POTASSIUM CHLORIDE (SR) 20 MEQ TAB PO STA (09:43)
[2016-09-12 09:49] LABS: POLYCHROMASIA 1+ (0-0)
[2016-09-12] MEDS ORDERED: LIDOCAINE 1% (MPF) 5 ML VIAL ONE (10:15)
[2016-09-12 10:45] LABS: FLD RBC 0 /uL; FLD WBC 42 /cmm
[2016-09-12] MEDS ORDERED: ALBUMIN HUMAN 25% 100 ML IV ONE (11:00)
[2016-09-12 11:05] LABS: FLD CLARITY CLEAR; FLD COLOR YELLOW; FLD TYPE PARACENTHESIS
--- NOTE | 2016-09-12 11:52 | CONS ---
Date/Time of Note Date/Time of Note DATE: 09/12/16 TIME: 11:49 Consult Date/Type/Reason Admit Date/Time Sep 11, 2016 at 04:09 Initial Consult Date 09/11/16 Type of Consultation: Gastroenterology Ordering Provider: RORY DIAZ Subjective Awake alert on BiPAP. Objective Vital Signs Date Time Temp Pulse Resp B/P Pulse Ox O2 Delivery O2 Flow Rate FiO2 09/12/16 11:30 112 98 100 09/12/16 06:00 24 108/62 09/12/16 04:00 98.2 09/11/16 19:00 BIPAP 09/11/16 07:08 12 Intake and Output 09/11/16 09/11/16 09/12/16 15:00 23:00 07:00 Intake Total 275 ml 186 ml 704 ml Output Total 110 ml 60 ml 140 ml Balance 165 ml 126 ml 564 ml Exam GENERAL: Chronically ill-appearing gentleman on BiPAP awake and alert. Significant kyphosis. VITAL SIGNS: per chart NECK: Supple. No JVD or lymphadenopathy. CARDIAC EXAM: S1, S2. No added sounds or murmurs. CHEST: Diminished air entry both lung pandya. ABDOMEN: Mildly distended tympanic but no guarding or rebound. EXTREMITIES: No cyanosis, clubbing or edema. NEUROLOGIC: Generalized weakness. No focal deficits. Results/Medications Result Diagram: 09/12/1652109/12/16 0522 Results 24 hrs Laboratory Tests Test 09/11/16 12:08 09/11/16 19:00 09/12/16 01:28 09/12/16 05:22 Prothrombin Time 29.6 H 22.9 #H Prothrombin Time Ratio 2.3 1.8 INR International Normalized Ratio 2.77 2.00 Lactic Acid Level 6.1 *H 4.1 *H 3.4 *H 3.1 *H Free Thyroxine 1.24 White Blood Count 5.6 # Red Blood Count 2.06 L Hemoglobin 8.4 L Hematocrit 24.6 L Mean Corpuscular Volume 119.4 H Mean Corpuscular Hemoglobin 40.8 H Mean Corpuscular Hemoglobin Concent 34.1 Red Cell Distribution Width 15.4 H Platelet Count 70 #L Mean Platelet Volume 10.2 Neutrophils % 77.5 H Lymphocytes % 11.7 L Monocytes % 9.0 Eosinophils % 1.1 Basophils % 0.2 Nucleated Red Blood Cells % 0.4 H Neutrophils # 4.3 Lymphocytes # 0.7 L Monocytes # 0.5 Eosinophils # 0.1 Basophils # 0.0 Nucleated Red Blood Cells # 0.0 Polychromasia 1+ Macrocytosis 2+ Sodium Level 134 L Potassium Level 3.3 L Chloride Level 94 L Carbon Dioxide Level 28 Anion Gap 15 Blood Urea Nitrogen 29 H Creatinine 1.36 H Glucose Level 118 Calcium Level 7.6 L Phosphorus Level 3.5 Magnesium Level 1.8 Total Bilirubin 5.3 H Direct Bilirubin 2.80 H Indirect Bilirubin 2.5 H Aspartate Amino Transf (AST/SGOT) 111 H Alanine Aminotransferase (ALT/SGPT) 94 H Alkaline Phosphatase 60 Total Protein 5.4 L Albumin 1.9 L Test 09/12/16 10:15 Body Fluid Type PARACENTHESIS Body Fluid Volume 1000.0 Body Fluid Color YELLOW Body Fluid Appearance CLEAR Body Fluid WBC 42 Body Fluid RBC (Auto) 0 Body Fluid Polynuclear WBCs (%) Pending Body Fluid Mononuclear Cells % Auto Pending Medications Current Medications Ondansetron HCl (Zofran Inj) 4 mg Q6H PRN IV NAUSEA AND/OR VOMITING; Start at 04:00 Nitroglycerin (Nitroglycerin (Sl Tab) 0.4 Mg) 1 tab Q5M PRN SL CHEST PAIN; Start 09/11/16 at 04:00 Acetaminophen (Tylenol Liquid) 650 mg Q6H PRN PO PAIN LEVEL 1-3 OR FEVER; Start 09/11/16 at 04:00 Morphine Sulfate (morphine) 2 mg Q4H PRN IV PAIN LEVEL 7-10 Last administered on 09/12/16 01:20; Admin Dose 2 MG; Start 09/11/16 at 04:00 Lorazepam (Ativan) 0.5 mg Q2H PRN IV ANXIETY; Start 09/11/16 at 04:00 Furosemide 40 mg 40 mg DAILY@06 IV Last administered on 09/12/16 05:11; Admin Dose 40 MG; Start 09/11/16 at 06:00 Albumin Human 100 ml @ 100 mls/hr ONCE ONCE IV ; Start 09/12/16 at 11:00; Stop 09/12/16 at 11:59 Potassium Chloride (KCl 40 MEQ/250 ML NS) 250 ml @ 62.5 mls/hr ONCE ONCE IVPB ; Start 09/12/16 at 12:00; Stop 09/12/16 at 15:59 Assessment/Plan Chief Complaint/Hosp Course Assessment 1. Advanced liver disease with cirrhosis and recurrent ascites. 2. Hypoxemic respiratory failure secondary to volume overload and alveolar hypoventilation. 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 3. Anemia of chronic disease. 4. Hypokalemia Plan 1. Paracentesis with ascitic fluid studies. 2. DC noninvasive positive pressure ventilation when stable. Continue nasal cannula O2 3. Continue GI recommendations. 4. DVT GI prophylaxis. She will be stable for transfer back to [facility] following paracentesis and improved oxygenation. Critical care time 40 minutes. Problems: DANII TONY MD, [facility] Sep 12, 2016 11:52
[2016-09-12] MEDS ORDERED: POTASSIUM CHLORIDE 250 ML IVPB ONE (12:00)
[2016-09-12 12:32] LABS: FLD MN% 59.5 %; FLD PMN% 40.5 %
--- NOTE | 2016-09-12 14:23 | RADRPT ---
PROCEDURE: Ultrasound guided paracentesis. CLINICAL INDICATION: Ascites and shortness of breath. COMPARISON: No prior studies are available for comparison. TECHNIQUE: The risks, benefits, and alternatives were explained to the patient and/or the patient's family, inc luding but not limited to bleeding, infection, pain, visceral or vascular damage, shock, and . The patient and/or the patient's family understood the risks and the alternatives and wished to pro ceed with the procedure. Informed written consent was obtained. A procedural time out was performed . The patient's name, date of , and procedure to be performed were verified. Utilizing ultrasound guidance, optimal location for entry to the peritoneal cavity was ascertained. The overlying skin was prepped and draped in the usual sterile fashion. Approximately 10 ml of 1% Xylocaine was injected locally for pain control. Using ultrasound guidance, an 8 [place] catheter wa s introduced into the peritoneal cavity in the right lower quadrant without difficulty. FINDINGS: Initial images demonstrate ascites. Approximately 1.1 liters of serous fluid was aspirated and sent for laboratory analysis. The patient tolerated the procedure well without complication. IMPRESSION: 1. Successful ultrasound-guided paracentesis. RPTAT: QQ .Pedro Montanez MD, Date Time Electronically viewed and signed by .Pedro Montanez MD, on 09/12/2016 14:22 .R/
--- NOTE | 2016-09-12 15:02 | RADRPT ---
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 Physician: JAIRO RICH Quality: Adequate Procedures: Transthoracic echocardiogram with complete 2D, M-Mode, and doppler examination. Indications: Congestive Heart Failure. 2D/M Mode Doppler Measurement Value Normal Ranges Measurement Value Normal Ranges LVIDd 2D 4.2 3.5 - 5.6 cm MARIELA Vmax 0.5 cm2 LVIDs 2D 3.8 2.1 - 4.1 cm MARIELA VTI 0.8 cm2 FS 2D 9.8 % AV Mean Trevon 2.2 m/sec LVPWd 2D 1.3 0.6 - 1.1 cm AV Mean PG 24.0 mmHg IVSd 2D 1.3 0.6 - 1.1 cm AV Peak Trevon 3.7 m/sec IVS/LVPW 2D 1.0 AV Peak PG 54.0 mmHg AoR Diam 2D 2.4 2.0 - 3.7 cm AV VTI 57.7 cm LA/Ao 2D 2 0 - 1 LVOT Peak Trevon 1.0 m/sec EDV 2D 72.5 cm3 LVOT Peak PG 4.0 mmHg ESV 2D 53.2 cm3 MV E Peak Trevon 1.3 m/sec LA Dimen 2D 4.3 2.3 - 4.0 cm MV Decel Time 215 msec LVOT Diam 1.5 cm TR Peak Trevon 3.3 m/sec LVOT Area 1.8 cm2 TR Peak PG 45.0 mmHg RVSP 48.0 mmHg Findings Left Ventricle: Normal left ventricular systolic function. Normal left ventricular cavity size. Mild concentric left ventricular hypertrophy. Ejection fraction is visually estimated at 60 %. Tissue Doppler/Mitral Doppler indices are consistent with restrictive physiology with markedly elevated left atrial pressure (Stage IIIIV diastolic dysfunction). Right Ventricle: Normal right ventricular systolic function. Mild enlargement of right ventricle. Left Atrium: There is mild enlargement of left atrium. Right Atrium: The right atrium is normal in size. Mitral Valve: Mitral valve leaflets appear mildly thickened. Mild mitral annular calcification. Trace mitral regurgitation. Aortic Valve: Moderate aortic stenosis. Aortic valve Max velocity 3.69 m/sec. Max PG 54.00 mmHg. Mean PG 23.00 mmHg. Aortic valve area 0.81 cm2. Aortic cusps appear moderately calcified. Tricuspid Valve: Normal appearance of the tricuspid valve. Estimated peak PA systolic pressure 48 mmHg. There is mild tricuspid regurgitation. Pulmonic Valve: Pulmonic valve not well visualized. There is trace pulmonic regurgitation. Pericardium: Normal pericardium with no significant pericardial effusion. Aorta: Normal aortic root. IVC: Normal size and normal respiratory collapse consistent with normal right atrial pressure. Conclusions Normal left ventricular systolic function. Normal left ventricular cavity size. Mild concentric left ventricular hypertrophy. Ejection fraction is visually estimated at 60 %. Tissue Doppler/Mitral Doppler indices are consistent with restrictive physiology with markedly elevated left atrial pressure (Stage III-IV diastolic dysfunction). Normal right ventricular systolic function. Mild enlargement of right ventricle. There is mild enlargement of left atrium. Mitral valve leaflets appear mildly thickened. Mild mitral annular calcification. Trace mitral regurgitation. Moderate aortic stenosis. Aortic valve Max velocity 3.69 m/sec. Max PG 54.00 mmHg. Mean PG 23.00 mmHg. Aortic valve area 0.81 cm2. Aortic cusps appear moderately calcified. Normal appearance of the tricuspid valve. Estimated peak PA systolic pressure 48 mmHg. There is mild tricuspid regurgitation. Pulmonic valve not well visualized. There is trace pulmonic regurgitation. Electronically Signed By: Colin Soliz 12-Sep-2016 15:02:23 -0700 Patient Name: CA MITCHELL Study Date: 12-Sep-2016 [id number]
--- NOTE | 2016-09-12 18:47 | PN ---
Date/Time of Note Date/Time of Note DATE: 09/12/16 TIME: 18:45 Assessment/Plan VTE Prophylaxis VTE Prophylaxis Intervention: SCD's Lines/Catheters IV Catheter Type (from Nrsg): Saline Lock Urinary Cath still in place: Yes Reason Cath still needed: other (indicate) (critically ill) Assessment/Plan Assessment/Plan 71 yo M with pmhx cirrhosis, chronic systolic HF admitted for SOB, etio unclear. Pulm imaging without large infiltrate to suggest untreated pna, or pleural effusions, no evidence of ARDS TTE without significantly decreased EF. Given A-a gradient on admit ABG concern for PE though pt too unstable to go for CTA. PLAN cont to wean FIO2 as tolerated, possibly get CTA to eval for PE pulm following stop empiric abx as imaging consistently with just fluid overload and no clear infiltrate hold high dose lasix given low BPs, consider restarting at lower dose in AM plan for transfer to [place] once FIO2 can be decreased to 60% cont DVT prophx Subjective 24 Hr Interval Summary Free Text/Dictation Requiring continious BiPap. Only ~1L taken out during today's para. Exam/Review of Systems Vital Signs Vitals Vital Signs Date Time Temp Pulse Resp B/P Pulse Ox O2 Delivery O2 Flow Rate FiO2 09/12/16 18:00 127 29 81/60 99 09/12/16 17:04 100 09/12/16 17:00 BIPAP 09/12/16 16:00 97.3 09/11/16 07:08 12 Intake and Output 09/11/16 09/11/16 09/12/16 15:00 23:00 07:00 Intake Total 275 ml 186 ml 714 ml Output Total 110 ml 60 ml 240 ml Balance 165 ml 126 ml 474 ml Exam nad, wearing bipap no mrg lungs clear anteriorly mild ascites no rashes Results Result Diagram: 09/12/16 0522 09/12/16 05 Results 24 hrs Laboratory Tests Test 09/11/16 19:00 09/12/16 01:28 09/12/16 05:22 09/12/16 10:15 Lactic Acid Level 4.1 *H 3.4 *H 3.1 *H White Blood Count 5.6 # Red Blood Count 2.06 L Hemoglobin 8.4 L Hematocrit 24.6 L Mean Corpuscular Volume 119.4 H Mean Corpuscular Hemoglobin 40.8 H Mean Corpuscular Hemoglobin Concent 34.1 Red Cell Distribution Width 15.4 H Platelet Count 70 #L Mean Platelet Volume 10.2 Neutrophils % 77.5 H Lymphocytes % 11.7 L Monocytes % 9.0 Eosinophils % 1.1 Basophils % 0.2 Nucleated Red Blood Cells % 0.4 H Neutrophils # 4.3 Lymphocytes # 0.7 L Monocytes # 0.5 Eosinophils # 0.1 Basophils # 0.0 Nucleated Red Blood Cells # 0.0 Polychromasia 1+ Macrocytosis 2+ Prothrombin Time 22.9 #H Prothrombin Time Ratio 1.8 INR International Normalized Ratio 2.00 Sodium Level 134 L Potassium Level 3.3 L Chloride Level 94 L Carbon Dioxide Level 28 Anion Gap 15 Blood Urea Nitrogen 29 H Creatinine 1.36 H Glucose Level 118 Calcium Level 7.6 L Phosphorus Level 3.5 Magnesium Level 1.8 Total Bilirubin 5.3 H Direct Bilirubin 2.80 H Indirect Bilirubin 2.5 H Aspartate Amino Transf (AST/SGOT) 111 H Alanine Aminotransferase (ALT/SGPT) 94 H Alkaline Phosphatase 60 Total Protein 5.4 L Albumin 1.9 L Hepatitis C Antibody NEGATIVE Body Fluid Type PARACENTHESIS Body Fluid Volume 1000.0 Body Fluid Color YELLOW Body Fluid Appearance CLEAR Body Fluid WBC 42 Body Fluid RBC (Auto) 0 Body Fluid Polynuclear WBCs (%) 40.5 Body Fluid Mononuclear Cells % Auto 59.5 Test 09/12/16 12:02 Lactic Acid Level 3.4 *H Medications Medications Current Medications Ondansetron HCl (Zofran Inj) 4 mg Q6H PRN IV NAUSEA AND/OR VOMITING; Start at 04:00 Nitroglycerin (Nitroglycerin (Sl Tab) 0.4 Mg) 1 tab Q5M PRN SL CHEST PAIN; Start 09/11/16 at 04:00 Acetaminophen (Tylenol Liquid) 650 mg Q6H PRN PO PAIN LEVEL 1-3 OR FEVER; Start 09/11/16 at 04:00 Morphine Sulfate (morphine) 2 mg Q4H PRN IV PAIN LEVEL 7-10 Last administered on 09/12/16t 01:20; Admin Dose 2 MG; Start 09/11/16 at 04:00 Lorazepam (Ativan) 0.5 mg Q2H PRN IV ANXIETY; Start 09/11/16 at 04:00 Furosemide 40 mg 40 mg DAILY@06 IV Last administered on 09/12/16t 05:11; Admin Dose 40 MG; Start 09/11/16 at 06:00 Sodium Chloride (NS) 500 ml @ 500 mls/hr Q1H ONCE IV ; Start 09/12/16 at 19:00 ; Stop 09/12/16 at 19:59 Procedures Procedures TTE with nl EF, advanced DD para with very low WBC count PARESH CANAS MD Sep 12, 2016 18:47
[2016-09-12] MEDS ORDERED: SOD CHLORIDE 0.9% 500 ML IV ONE (19:00)
--- NOTE | 2016-09-12 20:31 | EN ---
Date/Time of Note Date/Time of Note DATE: 09/12/16 TIME: 20:28 Event Note Medicine Medicine Event Note Pronouncement note Patient seen and examined at the bedside. Patient non-responive to verbal stimuli. Patient non-responsive to vigorous sternal rub. Patient non-responsive to noxious stimuli. No heart sounds appreciated on auscultation. Pupils fixed and non-reactive to light. Patient pronounced at approximately 8:15 pm. Family present at the bedside. Primary team aware. NAREN BOWEN Sep 12, 2016 20:31
--- NOTE | 2016-09-13 11:31 | DS ---
Date/Time of Note Date/Time of Note DATE: 09/13/16 TIME: 11:28 Discharge Summary Admission/Discharge Info Admit Date/Time Sep 11, 2016 at 04:09 Discharge Date/Time Sep 12, 2016 at 20:00 Discharge Diagnosis hypoxic respiratory failure of unclear etiology Consults pulmonology, GI Procedures NCCT A/P 7.22 IMPRESSION: 1. Cardiomegaly with extensive coronary artery calcification, ground-glass infiltrate/edema in the visualized lung parenchyma and bilateral pleural effusions as well as anasarca are concerning for cardiac decompensation, congestive heart failure. 2. Hepatic steatosis with slight nodular contour to the liver unable to exclude cirrhosis. 3. Likely gallbladder sludge without cholecystitis. 4. Contracted but otherwise unremarkable urinary bladder. 5. Moderate ascites. 6. Chronic compression fracture deformities at L2, L3 and L4 with left hip hemiarthroplasty changes. 7. Atherosclerotic calcification of the aorta and iliac systems. 8. Hiatal hernia. CXR 7.23 IMPRESSION: 1. Mild cardiomegaly. 2. Calcified thoracic aortic arch. 3. Mild pulmonary vascular congestion 4. Shallow inspiration. 5. Mild bibasilar subsegmental atelectasis. 6. Small left pleural effusion. 7.23 TTE Conclusions Normal left ventricular systolic function. Normal left ventricular cavity size. Mild concentric left ventricular hypertrophy. Ejection fraction is visually estimated at 60 %. Tissue Doppler/Mitral Doppler indices are consistent with restrictive physiology with markedly elevated left atrial pressure (Stage III-IV diastolic dysfunction). Normal right ventricular systolic function. Mild enlargement of right ventricle. There is mild enlargement of left atrium. Mitral valve leaflets appear mildly thickened. Mild mitral annular calcification. Trace mitral regurgitation. Moderate aortic stenosis. Aortic valve Max velocity 3.69 m/sec. Max PG 54.00 mmHg. Mean PG 23.00 mmHg. Aortic valve area 0.81 cm2. Aortic cusps appear moderately calcified. Normal appearance of the tricuspid valve. Estimated peak PA systolic pressure 48 mmHg. There is mild tricuspid regurgitation. Pulmonic valve not well visualized. There is trace pulmonic regurgitation. 7.24 US guided para, 1L removed, no evidence of SBP Hx of Present Illness This is a 71-year-old male with a history of hypertension, liver cirrhosis and CHF who presented to the emergency department complaining of abdominal pain/ distention, nausea vomiting and shortness of breath. Patient's currently on BiPAP and as such information is gathered from a chart review and from the ER physician. When he presented to the ER his oxygen saturation was 83% and he was initially put on nonrebreather mask and then switched to BiPAP. His abdomen is distended and patient is jaundiced he had a sodium of 130 total bilirubin is elevated at 6.6, AST and ALT are in the 100s. CT abdomen pelvis shows cardiomegaly with extensive coronary artery calcifications, infiltrate in the lung parenchymal, pulmonary edema, anasarca concerning for cardiac decompensation, CHF. No reported chest pain. Hospital Course 71 yo M with pmhx cirrhosis, chronic systolic HF admitted for SOB, etio unclear. Pulm imaging without large infiltrate to suggest untreated pna, or pleural effusions, no evidence of ARDS, TTE without significantly decreased EF. Pt underwent LBP without sig change in oxygen needs. Given A-a gradient on admit ABG concern for PE though pt too unstable to go for CTA. Pt maintained on BiPap however was never able to be weaned to <70% FIO2. Shortly after 7pm 7.24, pt acutely decompensated with decline in HR, BP and SO2. Pt at 815pm. Pt was DNR at time of his passing (pulm service had confirmed DNR status with the patient earlier that day) Follow-up Plan Pt Primary Care Provider Care Physician No Primary Time spent on discharge: > 30 minutes Pending Labs Laboratory Tests Test 09/12/16 12:02 09/12/16 18:53 09/13/16 10:01 Lactic Acid Level 3.4mmol/L (0.5-2.0) 8.3mmol/L (0.5-2.0) Lab Scanned Report REFERENCE [id number] PARESH ACNAS MD Sep 13, 2016 11:30
== END 2016-09-12 20:00 | disposition expired | DRG 432 ==
LOC: E/R 19:31 → ICU 09-11 04:09
PROVIDERS: ADMIT Internal Medicine; ATTEND Internal Medicine
PROC: 0W9G3ZZ Drainage of Peritoneal Cavity, Percutaneous Approach (ICD-10-PCS; principal; 2016-09-11)
PROC: 5A09457 Assistance with Respiratory Ventilation, 24-96 Consecutive Hours, Continuous Positive Airway Pressure (ICD-10-PCS; 2016-09-11)
PROC: 4A033R1 Measurement of Arterial Saturation, Peripheral, Percutaneous Approach (ICD-10-PCS; 2016-09-11)
PROC: 30233K1 Transfusion of Nonautologous Frozen Plasma into Peripheral Vein, Percutaneous Approach (ICD-10-PCS; 2016-09-11)
DX: K74.60 Unspecified cirrhosis of liver (principal); J96.01 Acute respiratory failure with hypoxia; R18.8 Other ascites; D68.4 Acquired coagulation factor deficiency; I11.0 Hypertensive heart disease with heart failure; I50.22 Chronic systolic (congestive) heart failure; E87.1 Hypo-osmolality and hyponatremia; D69.6 Thrombocytopenia, unspecified; K72.90 Hepatic failure, unspecified without coma; Z66 Do not resuscitate; R74.0 Nonspecific elevation of levels of transaminase and lactic acid dehydrogenase [LDH]; M43.8X6 Other specified deforming dorsopathies, lumbar region; K44.9 Diaphragmatic hernia without obstruction or gangrene; E87.6 Hypokalemia; D63.8 Anemia in other chronic diseases classified elsewhere; Z88.0 Allergy status to penicillin; Z88.6 Allergy status to analgesic agent; Z96.642 Presence of left artificial hip joint
CPT/HCPCS: 36415; 36430; 36600; 71010; 74176; 80048; 80053; 80061; 80076; 81001; 82042; 82140; 82550; 82553; 82803; 83036; 83605; 83690; 83735; 83880; 84100; 84439; 84443; 84484; 85025; 85610; 85730; 86803; 86850; 86900; 86901; 87040; 87070; 87081; 87086; 87102; 87116; 89051; 93005; 93306; 94640; 94660; 94664; 96361; 96365; 96372; 96375; J1940; J1956; J2270; J3370; J3475; J3480; J7030; J7040; P9047; P9059